=== PATIENT | male | born 1990 | race Caucasian/White ===

== ENCOUNTER 2023-11-14 13:33 | Emergency (ER) | payer OTHER, SELFPAY ==
--- NOTE | ~2023-11-14 | XR_ITS ---
EXAMINATION: XR finger 4th LT min 2V DATE: 11/14/2023 13:54 INDICATION: Laceration to the anterior distal left fourth phalanx post blunt trauma TECHNIQUE: Dorsal palmar, lateral and 2 oblique views of the left fourth digit were obtained COMPARISON: 12/25/2017 FINDINGS: Bone alignment is normal. No fracture. Soft tissue swelling at the palmar aspect of the left fourth d istal phalanx. No radiopaque foreign bodies. IMPRESSION: 1. No osseous abnormality. Reviewed, dictated and finalized at location A. IMPRESSION: 1. No osseous abnormality.
[2023-11-14 13:39] VITALS: BP 160/101; PULSE 85; RESP 16; TEMP 36.7; O2SAT 100
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
[2023-11-14] MEDS: TETANUS,DIPHTHERIA,AC PERTUSSIS ADULT (0.5 ML) BOOSTRIX IM (15:35)
[2023-11-14 15:40] VITALS: BP 149/99; PULSE 80; RESP 16; O2SAT 99
== END 2023-11-14 15:42 | disposition home or self-care (01) ==
PROVIDERS: Emergency Provider Nurse Practitioner Family
DX: S61.215A Laceration without foreign body of left ring finger without damage to nail, initial encounter (principal); Z23 Encounter for immunization; W23.0XXA Caught, crushed, jammed, or pinched between moving objects, initial encounter
CPT/HCPCS: 12002; 73140; 90471; 90715; 99283

== ENCOUNTER 2024-08-10 08:26 | Outpatient (CLI) | payer OTHER, SELFPAY ==
--- NOTE | ~2024-08-10 | MR_ITS ---
EXAMINATION: MR wrist LT wo con DATE: 08/10/2024 09:09 INDICATION: Left wrist pain TECHNIQUE: Magnetic resonance imaging (MRI) of the left wrist was performed without intravenous contr ast. Sequences performed include axial PD-weighted FSE and PD-weighted FS FSE, coronal PD-weighted FS FSE and T1-weighted SE, and sagittal PD-weighted FS FSE and PD-weighted FSE. COMPARISON: None FINDINGS: Intrinsic ligaments: The scapholunate and lunotriquetral ligaments are normal. Triangular fibrocartilage complex (TFCC): The triangular fibrocartilage including its foveal and styloid attachments as well as the dorsal and volar radioulnar ligaments are normal. The ulnar collateral ligament, ulnotriquetral ligament and men iscal homologue are normal. The extensor carpi ulnaris tendon sheath is normal. Extensor wrist: Extensor tendons of the wrist are normal. No tenosynovitis. Flexor wrist: The flexor tendons of the wrist are normal. No abnormality in the carpal tunnel with normal median n erve. Guyon's canal: Guyon's canal including the ulnar nerve and artery are normal. Bones/other: Normal marrow signal. No fracture, erosions, avascular necrosis or abnormal marrow replacing process. Mild osteoarthritis at the first carpal metacarpal joint. Remaining joint spaces appear normal. IMPRESSION: 1. Mild osteoarthritis at the first carpometacarpal joint. Otherwise unremarkable left wrist MRI. Reviewed, dictated and finalized at location A. IMPRESSION: 1. Mild osteoarthritis at the first carpometacarpal joint. Otherwise unremarkab le left wrist MRI.
== END 2024-08-10 08:27 | disposition home or self-care (01) ==
PROVIDERS: PCP Family Medicine; Visit Provider Family Medicine
DX: M19.032 Primary osteoarthritis, left wrist (principal)
CPT/HCPCS: 73221

== ENCOUNTER 2024-10-21 19:32 | Emergency (ER) | payer OTHER, SELFPAY ==
--- NOTE | ~2024-10-21 | CT_ITS ---
History: Vertigo with nausea and vomiting PROCEDURE: CT head without contrast. COMPARISON: None TECHNIQUE: Axial imaging of the head performed from the skull base to the vertex without IV contrast. Sagittal a nd coronal reformations obtained. DLP: 605 mGy-cm FINDINGS: The ventricles are normal in size, shape and position. There is no mass, mass effect or midline shift. There is no abnormal extra-axial fluid collection or intracranial hemorrhage. Visualized paranasal sinuses are clear. The mastoid air cells are well aerated. No acute displaced fractures within the overlying cranium. Impression: No acute intracranial hemorrhage or suspicious mass effect. Reviewed, dictated and finalized at location A. Impression: No acute intracranial hemorrhage or suspicious mass effect.
--- NOTE | ~2024-10-21 | XR_ITS ---
CHEST RADIOGRAPH, PA AND LATERAL CLINICAL HISTORY: cp . COMPARISON: None available TECHNIQUE: PA and lateral views of the chest. FINDINGS The cardiomediastinal silhouette is unremarkable. The lungs are clear. IMPRESSION: No focal infiltrate or effusion. Reviewed, dictated and finalized at location A.
[2024-10-21 19:34] VITALS: BP 150/108; PULSE 95; RESP 16; TEMP 36.3; O2SAT 98
--- OUTSIDE RECORDS SUMMARY | 2024-10-21 19:34 | XMS_ITS | Encounter Summary ---
Author Organization [facility] Healthcare Address [address] [place] [address] Care Team Providers Care Soil Conservation Aide Name Role Phone Unknown, Notinfile Primary Care Provider Unavail able Reason for Visit * Reason Onset Date Comments Wrist Injury 10/21/2024 Encounter Details Date Type Department Care Team (Late st Contact Info) Description 10/21/[address] [facility] Medical Group Orthopedics and Sports Medicine [address] [facility] [address] [place] [address] Roosevelt Quarles, DO [address] [facility] [address] [place] [address] Wrist Injury Social History Tobacco Use Types Packs/Day Years Used Date Smoking Tobacco: Never Smokeless Tobacco: Current AUDIT-C Answer Date Recorded Q1: How often do you have a drink containing alc ohol? 2-4 times a month 09/25/2024 Q2: How many drinks containi ng alcohol do you have on a typical day when you are drinking? 3 or 4 09/25/2024 Q3: How often do you have si x or more drinks on one occasion? 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 * Telephone Encounter - Jen Paul - 10/21/2024 8:06 AM CDT Patient called in wanting to know his MRI results and next steps. Requests c/b. documented in this encounter Plan of Treatment Not on file documented as of this encounter Visit Diagnoses Not on filedocumented in this encounter Care Teams Soil Conservation Aide Relationship Specialty Start Date End Date Unknown, Notinfile PCP - General 09/15/24 documented as of this encounter
--- OUTSIDE RECORDS SUMMARY | 2024-10-21 19:34 | XMS_ITS | Referral Summary ---
Author Organization [address] Address [address] [place] [phone] Care Team Providers Care Principal Embedded Software Engineer Name Role Phone Unknown, Notinfile Primary Care Provider Unavail able Encounters Date Type Department Care Team Description 10/21/2024 Telephone [facility] Orthopedics and Sports Medicine [address] [facility] [address], [place] [address] Roosevelt Quarles DO Wrist Injury 09/25/2024 2:15 PM CDT Ancillary Procedure [facility] Imaging at [address] [phone] Left wrist pain 09/25/2024 2:30 PM CDT Office Visit [facility] Sports Medicine and Primary Care at [address] [place] [address] Roosevelt Quarles DO Flexor carpi ulnaris tendinitis (Primary Dx); Left wrist pain 08/10/2024 Ancillary Procedure [facility] Outside Films from Last 3 Months Allergies No known active allergies Medications No known medications Active Problems No known active problems Social History Tobacco Use Types Packs/Day Years Used Date Smoking Tobacco: Never Smokeless Tobacco: Current Tobacco Cessation:Ready to Q uit: No; Counseling Given: Yes AUDIT-C Answer Date Recorded Q1: How often [...] on file 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 Gender Identity Not on file Sexual Orientation Not on file Last Filed Vital Signs Vital Sign Reading Time Taken Comments Blood Pressure 135/79 09/25/2024 2:27 PM CDT Pulse 72 09/25/2024 2:27 PM CDT Temperature - - Respiratory Rate 18 09/25/2024 2:27 PM CDT Oxygen Saturation - - Inhaled Oxygen Concentration - - Weight 79.8 kg (176 lb) 09/25/2024 2:27 PM CDT Height 172.7 cm (5' 8) 09/25/2024 2:27 PM CDT Body Mass Index 26.76 09/25/2024 2:27 PM CDT Plan of Treatment Not on file Procedures Procedure Name Priority Date/Time Associated Diagnosis Comments XR WRIST LEFT 3 OR MORE VIEWS Schedule Routine, Read Routine (OP Routine) 09/25/2024 2:21 PM CDT Left wrist pain MRI TRANSFER OF OUTSIDE FILMS Routine 08/10/2024 12:00 AM CDT from Last 3 Months Results * XR Wrist Left 3 or More Views (09/25/2024 2:21 PM CDT) Anatomical Region Laterality Modality Upper Extremities, Wrist Left Digital Radiography 09/25/2024 4:28 PM CDT Narrative 09/25/2024 4:32 PM CDT EXAM DESCRIPTION: XR WRIST LEFT 3 OR MORE VIEWS REASON FOR STUDY: pain Pt complains of left wrist pain after grabbing something and feeling a pop from a month ago. No prior surgery to the wrist. TECHNIQUE: There are 3 radiographic view(s) of the left wrist . COMPARISON: No prior FINDINGS: Normal mineralization. No acute fracture or dislocation. Moderate osteoarthritis 1st carpometacarpal joint. Otherwise, joint spaces are intact. Soft tissues are unremarkable. IMPRESSION: No acute fracture. Moderate osteoarthritis 1st carpometacarpal joint. THIS IS AN ELECTRONICALLY VERIFIED FINAL REPORT 09/25/2024 4:32 PM - Electronically signed by Roosevelt FRAZIER T: Report ID: [id number] Reading Location: [id number] Procedure Note Roosevelt Ca MD - 09/25/2024 EXAM DESCRIPTION: XR WRIST LEFT 3 OR MORE VIEWS REASON FOR STUDY: pain Pt complains of left wrist pain after grabbing something and feeling a pop from a month ago. No prior surgery to the wrist. TECHNIQUE: There are 3 radiographic view(s) of the left wrist . COMPARISON: No prior FINDINGS: Normal mineralization. No acute fracture or dislocation.Moderate osteoarthritis 1st carpometacarpal joint. Otherwise, joint spaces areintact. Soft tissues are unremarkable. IMPRESSION: No acute fracture. Moderate osteoarthritis 1st carpometacarpal joint. THIS IS AN ELECTRONICALLY VERIFIED FINAL REPORT 09/25/2024 4:32 PM - Electronically signed by Roosevelt Ca M.D. MJ T: Report ID: [id number] Reading Location: [id number] us Roosevelt Quarles DO IMG XR PROCEDURES Roselia l Result * MRI Outside Reference (08/10/2024 12:00 AM CDT) Narrative [facility] - 10/07/2024 1:56 PM CDT This order has been auto-finalized and does not contain a result. us Not In File Miscellaneous IMG MRI PROCEDURES Fin al Result [facility] from Last 3 Months Insurance [facility] Care Teams Principal Embedded Software Engineer Relationship Specialty Start Date End Date Unknown, Notinfile PCP - General 09/15/24
--- OUTSIDE RECORDS SUMMARY | 2024-10-21 19:34 | XMS_ITS | Clinical Summary ---
Author Organization [facility] Address [address] [place] [id number] Care Team Providers Care Dispute Resolution Specialist Name Role Phone Yumiko Preston MD Primary Care Provider [phone]- [phone] Allergies No known active allergies Medications Multiple Vitamins-Minerals (MENS MULTIVITAMIN OR) Act claudio colchicine 0.6 MG tabletIndications :Acute idiopathic gout of right foot Take 1 tablet (0.6 mg total) by mouth daily. 5 tablet 3 09/29/2021 Active Active Problems Problem Noted Date Diagnosed Date Overweight (BMI 25.0-29.9) 10/16/2021 Acute idiopathic gout of right foot 09/29/2021 Family History Medical History Relation Comments Cancer Father Cancer Paternal Grandfather Relation Status Comments Father Alive Mother Alive Paternal Grandfather Social History Tobacco Use Types Packs/Day Years Used Date Smoking Tobacco: Every Day Cigarettes 0.5 10 Smokeless Tobacco: Never Tobacco Cessation:Ready to Q uit: No; Counseling Given: Yes Alcohol Use Standard Drinks/Week Comments Yes 0 (1 standard drink = 0.6 oz pur e alcohol) socially PHQ-2 Answer Date Recorded PHQ-2 Score - If the patient scores above 3, please move on to questions 3-9 0 09/29/2021 Sex and Gender Information Value Date Recorded Sex Assigned at Male 07/06/2024 11:01 AM TABULAR TYPIST Legal Sex Male 4:47 PM CDT Gender Identity Not on file Sexual Orientation Not on file Last Filed Vital Signs Vital Sign Reading Time Taken Comments Blood Pressure 116/72 10/13/2021 3:02 PM CDT Pulse 86 10/13/2021 3:02 PM CDT Temperature 36.5 C (97.7 F) 10/13/2021 3:02 PM CDT Respiratory Rate 20 10/13/2021 3:02 PM CDT Oxygen Saturation 96% 10/13/2021 3:02 PM CDT Inhaled Oxygen Concentration - - Weight 78.8 kg (173 lb 12.8 oz) 10/13/2021 3:02 PM CDT Height 172.7 cm (5' 8) 10/13/2021 3:02 PM CDT Body Mass Index 26.43 10/13/2021 3:02 PM CDT Plan of Treatment Health Maintenance Due Date Last Done Comments Hepatitis C 2009 DTaP, Tdap and Td Vaccines ( 1 - Tdap) 2010 Hepatitis B Vaccines (1 of 3 - 19+ 3-dose series) 2010 Pneumococcal Vaccine: Pediat rics (0 to 5 Years) and At-Risk Patients (6 to 49 Years) (1 of 2 - PCV) 2010 Annual Physical 02/17/2020 02/16/2019 COVID-19 Vaccine (2 - 2023-2 5 season) 2024 03/09/2021 HPV Vaccines Aged Out No longer eligi ble based on patient's age to complete this topic Meningococcal B Vaccine Aged Out No l onger eligible based on patient's age to complete this topic Meningococcal Vaccine Aged Out No gavino mika eligible based on patient's age to complete this topic RSV Immunizations Under 20 Months Aged Out No longer eligible based on patient's age to complete this topic Insurance [employer] Care Teams Dispute Resolution Specialist Relationship Specialty Start Date End Date Yumiko Preston MD [address] [place] [phone] PCP - General FAMILY PRACTICE 07/06/24
--- OUTSIDE RECORDS SUMMARY | 2024-10-21 19:34 | XMS_ITS | Clinical Summary ---
Author Organization [address] Address [address] [place] [phone] Care Team Providers Care Plastics Engineer Name Role Phone Unknown, Notinfile Primary Care Provider Unavail able Allergies No known active allergies Medications No known medications Active Problems No known active problems Encounters Date Type Department Care Team Description 10/21/2024 Telephone [facility] Orthopedics and Sports Medicine [address] [place] [address] [place] [phone] Roosevelt Quarles DO Wrist Injury 09/25/2024 2:30 PM CDT Office Visit [facility] Sports Medicine and Primary Care at [address] [place] [address] Roosevelt Quarles DO Flexor carpi ulnaris tendinitis (Primary Dx); Left wrist pain 09/25/2024 2:15 PM CDT Ancillary Procedure [facility] Group Imaging at [address] [phone] Left wrist pain 08/10/2024 Ancillary Procedure [facility] Outside Films from Last 3 Months Family History Medical History Relation Name Comments No Known Problems Father No Known Problems Mother Relation Name Status Comments Father Alive Mother Alive Social History Tobacco Use Types Packs/Day Years [...] on file 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 Gender Identity Not on file Sexual Orientation Not on file Obstetrics History Last Filed Vital Signs Vital Sign Reading [...] 09/25/2024 2:27 PM CDT Plan of Treatment Health Maintenance Due Date Last Done Comments Depression Screening 1991 Hepatitis C Screening 1991 Varicella Vaccines (1 of 2 - 13+ 2-dose series) 02/26/2004 Hepatitis B Screening 2009 Regular Well Visit/Exam 18-64 2009 Covid-19 Vaccine (2 - 2023-2 5 season) 2024 03/09/2021 Influenza Vaccine (Season Ended) 2025 DTaP/Tdap/Td Vaccine (2 - Td or Tdap) 11/13/2033 11/14/2023 HPV Vaccines Aged Out No longer eligi ble based on patient's age to complete this topic Pneumococcal vaccine <65 Aged Out No longer eligible based on patient's age to complete this topic Procedures Procedure Name Priority Date/Time Associated Diagnosis [...] signed by Roosevelt FRAZIER T: Report ID: [id number] Reading Location: [id number] Procedure Note Roosevelt Ca MD - 09/25/2024 [...] signed by Roosevelt FRAZIER T: Report ID: [id number] Reading Location: [id number] us Roosevelt Quarles DO IMG XR PROCEDURES Roselia l Result * MRI Outside Reference (08/10/2024 12:00 AM CDT) Narrative [facility] - 10/07/2024 1:56 PM CDT This order has been auto-finalized and does not contain a result. us Not In File Miscellaneous IMG MRI PROCEDURES Fin al Result [facility] from Last 3 Months Insurance [facility] C[facility] Care Teams Plastics Engineer Relationship Specialty Start Date End Date Unknown, Notinfile PCP - General 09/15/24
--- NOTE | 2024-10-21 19:43 | ECG_ITS ---
Test Date: 2024-10-21 19:49:12 Measurements Intervals Adams Rate: 95 P: 45 AK: 141 QRS: 37 QRSD: 106 T: -9 QT: 336 QTc: 423 Interpretive Statements SINUS RHYTHM BORDERLINE ST-T WAVE ABNORMALITY- ANT/INF LEADS BORDERLINE ECG No previous ECG available for comparison Electronically Signed On 10-21-2024 21:04:17 CDT by Kota Hooker D.O.
[2024-10-21 19:59] VITALS: O2SAT 100
[2024-10-21 20:00] VITALS: BP 140/102; PULSE 95; RESP 17; O2SAT 97
[2024-10-21 20:01] VITALS: PULSE 98
[2024-10-21 20:17] LABS: Basophils Percent Auto 0.3 % (0.2-1.2); Eosinophils Percent Auto 0.2 % (0-4.4); Hematocrit 47.9 % (42.0-52.0); Hemoglobin 16.4 g/dL (14.0-18.0); Immature Granulocyte Absolute 0.13 K/mm3 (0.00-0.031); Immature Granulocyte Percent A 1.1 % (0-0.5); Lymphocytes Absolute Auto 2.71 K/mm3 (0.9-3.2); Lymphocytes Percent Auto 23.7 % (18.3-44.2); Mean Corpuscular HGB Conc 34.2 g/dl (32-36); Mean Corpuscular Volume 84.8 fl (80-100); Mean Platelet Volume 9.2 fl (7.4-10.4); Monocytes Absolute Auto 0.8 K/mm3 (0.1-0.6); Monocytes Percent Auto 7.2 % (2.6-8.5); Neutrophils Absolute Auto 7.7 K/mm3 (1.3-6.7); Neutrophils Percent Auto 67.5 % (45.5-73.1); Platelet Count Result 298 k/mm3 (150-375); Red Blood Count 5.65 M/mm3 (4.6-6.20); Red Cell Distribution Width 12.3 % (11.5-14.5); White Blood Count 11.4 K/mm3 (4.5-10.0)
[2024-10-21 20:28] LABS: Alanine Aminotransferase 23 U/L (6-50); Albumin Level 5.5 g/dL (3.5-5.1); Alkaline Phosphatase 69 U/L (38-126); Anion Gap 16 mmol/L (4-12); Aspartate Amino Transferase 33 U/L (17-59); Blood Urea Nitrogen 20 mg/dL (9-20); Calcium 10.1 mg/dL (8.4-10.2); Carbon Dioxide 21 mmol/L (22-30); Chloride 97 mmol/L (98-107); Estimated CRCL calculation 87 ml/min; Estimated Glomerular Filt Rate > 60; Glucose 90 mg/dL (65-110); Lipase 25 U/L (23-300); Potassium 3.5 mmol/L (3.4-5.0); Prothrombin Time 13.6 Seconds (11.1-14.7); Sodium 134 mmol/L (137-145); Total Protein 9.5 g/dL (6.3-8.2)
[2024-10-21 20:29] LABS: Partial Thromboplastin Time 28.7 Seconds (22.3-36.8)
[2024-10-21 20:39] LABS: Troponin I < 0.012 ng/mL (0.000-0.034)
--- OUTSIDE RECORDS SUMMARY | 2024-10-21 20:47 | XMS_ITS | Clinical Summary ---
Author Organization [address] Address [address] [place] [phone] Care Team Providers Care Commercial Correspondent Name Role Phone Unknown, Notinfile Primary Care Provider Unavail able Allergies No known active allergies Medications No known medications Active Problems No known active problems Encounters Date Type Department Care Team Description 10/21/2024 Telephone [facility] Orthopedics and Sports Medicine [address] [place] [address] [place] [phone] Roosevelt Quarles DO Wrist Injury 09/25/2024 2:30 PM CDT Office Visit [facility] Sports Medicine and Primary Care at [address] [place] [address] Roosevelt Quarles DO Flexor carpi ulnaris tendinitis (Primary Dx); Left wrist pain 09/25/2024 2:15 PM CDT Ancillary Procedure 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 us Not In File Miscellaneous IMG MRI PROCEDURES Fin al Result [facility] from Last 3 Months Insurance [facility] C[facility] Care Teams Commercial Correspondent Relationship Specialty Start Date End Date Unknown, Notinfile PCP - General 09/15/24
--- OUTSIDE RECORDS SUMMARY | 2024-10-21 20:47 | XMS_ITS | Encounter Summary ---
Author Organization [facility] Healthcare Address [address] [place] [address] Care Team Providers Care Artificial Fly Tier Name Role Phone Unknown, Notinfile Primary Care Provider Unavail able Reason for Visit * Reason Onset Date Comments Wrist Injury 10/21/2024 Encounter Details Date Type Department Care Team (Late st Contact Info) Description 10/21/2024 Telephone [facility] Medical Group Orthopedics and Sports Medicine [address] [facility] [address] [place] [address] Roosevelt Quarles, DO [address] [facility] [address] [place] [address] Wrist Injury Social History Tobacco [...] on file 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 * Telephone Encounter - Jen Paul - 10/21/2024 8:06 AM CDT Patient called in wanting to know his MRI results and next steps. Requests c/b. documented in this encounter Plan of Treatment Not on file documented as of this encounter Visit Diagnoses Not on filedocumented in this encounter Care Teams Artificial Fly Tier Relationship Specialty Start Date End Date Unknown, Notinfile PCP - General 09/15/24 documented as of this encounter
--- OUTSIDE RECORDS SUMMARY | 2024-10-21 20:47 | XMS_ITS | Referral Summary ---
Author Organization [address] Address [address] [place] [phone] Care Team Providers Care Side Stitcher Name Role Phone Unknown, Notinfile Primary Care Provider Unavail able Encounters Date Type Department Care Team Description 10/21/2024 Telephone [facility] Orthopedics and Sports Medicine [address] [facility] [address], [place] [address] Roosevelt Quarles DO Wrist Injury 09/25/2024 2:15 PM CDT Ancillary Procedure [facility] Imaging at [address] [phone] Left wrist pain 09/25/2024 2:30 PM CDT Office Visit [facility] Sports Medicine and Primary Care at [address] [place] [address] Roosevelt Quarles DO Flexor carpi [...] on file 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 MJ T: Report ID: [id number] Reading Location: [id number] us Roosevelt Quarles DO IMG XR PROCEDURES Roselia l Result * MRI Outside Reference (08/10/2024 12:00 AM CDT) Narrative [facility] - 10/07/2024 1:56 PM CDT This order has been auto-finalized and does not contain a result. us Not In File Miscellaneous IMG MRI PROCEDURES Fin al Result [facility] from Last 3 Months Insurance [facility] Care Teams Side Stitcher Relationship Specialty Start Date End Date Unknown, Notinfile PCP - General 09/15/24
[2024-10-21] MEDS: MECLIZINE HCL 25 MG TABLET PO (21:40)
--- NOTE | 2024-10-21 21:52 | ED_ITS ---
HPI - Recheck/Abnormal Lab/Rx General Chief Complaint: Recheck/Abnormal Lab/Rx Stated Complaint: blood pressure high Time Seen by Provider: 10/21/24 20:25 History of Present Illness HPI narrative: 34-year-old otherwise healthy male presenting to the emergency department for elevated blood pressure readings and vertiginous sensations for last few days. He states he vomited 1 time but did not fall or injure his head. Endorses profound vertigo especially with position changes and certain angles. No history of vertigo in the past. No nauseousness, vomiting. He endorses some minor chest pain that went away without any intervention. No vision changes, shortness a breath, fever, chills, sick contacts. Related Data Allergies Allergy/AdvReac Type Severity Reaction Status Date / Time No Known Allergies Allergy Verified 11/14/23 13:42 Review of Systems 2 Review of Systems: As reviewed above in HPI Exam 2 Narrative: GENERAL: [Well-appearing, well-nourished, and in no acute distress.] HEAD: [Normocephalic, atraumatic.] EYES: [PERRLA and EOMI.] ENT: Nares clear, no rhinorrhea or epistaxis. Mucous membranes moist. NECK: Supple. CHEST: [Clear to auscultation. No respiratory distress.] HEART: [Regular rate and rhythm]. No murmur heard. [Normal peripheral pulses.] ABDOMEN: [Soft, nondistended], [nontender], [No rigidity or guarding] EXTREMITIES: Normal range of motion. [No edema.] SKIN: Warm, dry, no rash. NEURO: [No focal deficits]. Alert and oriented [x3.] No ataxia in the arms or legs, ambulates in a straight line. PSYCH: [Normal mood and affect.] Course Vital Signs Vital signs: Vital Signs Temperature 36.3 C L 10/21/24 19:34 Pulse Rate 95 10/21/24 19:34 Respiratory Rate 16 10/21/24 19:34 Blood Pressure 150/108 H 10/21/24 19:34 Pulse Oximetry 98 10/21/24 19:34 Oxygen Delivery Room Air 10/21/24 19:34 Temperature 36.9 C 10/21/24 22:29 Pulse Rate 88 10/21/24 22:29 Respiratory Rate 18 10/21/24 22:29 Blood Pressure 160/100 H 10/21/24 22:29 Pulse Oximetry 96 10/21/24 22:29 Oxygen Delivery Room Air 10/21/24 19:34 MDM - Recheck/Abnormal Lab/Rx MDM Narrative Medical decision making narrative: 34-year-old otherwise healthy male presenting to the emergency depart for elevated blood pressure readings and vertiginous symptoms. Patient states he has a primary care provider appointment coming up to discuss his blood pressure. He has a benign neurological examination, strong symmetric pulses, mildly hypertensive but no other vital concerns. Symptoms consistent with benign positional paroxysmal vertigo but will obtain basic laboratory studies, CT of the head, EKG and chest x-ray as well as cardiac workup to evaluate for any other potential causes such as electrolyte imbalances, dehydration, infection, pneumonia. Low suspicion cardiac in nature. He was given meclizine and fluids and re-evaluated. Patient declined fluids but felt better after meclizine. CT scan was unremarkable, troponin negative, EKG unremarkable. Normal workup otherwise. Patient given prescription for meclizine and follow up with his primary care provider. He was given return precautions and discharge instructions. Medical Records Attestation: I reviewed the patient's medical records. Lab Data Attestation: I reviewed the patient's lab results. 10/21/24 20:11 10/21/24 20:11 Labs: Lab Results 10/21/24 Range/Units 20:11 WBC 11.4 H (4.5-10.0) K/mm3 RBC 5.65 (4.6-6.20) M/mm3 Hgb 16.4 (14.0-18.0) g/dL Hct 47.9 (42.0-52.0) % MCV 84.8 (80-100) fl MCH 29.0 (26-34) pg MCHC 34.2 (32-36) g/dl RDW 12.3 (11.5-14.5) % Plt Count 298 (150-375) k/mm3 MPV 9.2 (7.4-10.4) fl Immature Gran % (Auto) 1.1 H (0-0.5) % Neut % (Auto) 67.5 (45.5-73.1) % Lymph % (Auto) 23.7 (18.3-44.2) % Miller % (Auto) 7.2 (2.6-8.5) % Eos % (Auto) 0.2 (0-4.4) % Baso % (Auto) 0.3 (0.2-1.2) % Lymph # (Auto) 2.71 (0.9-3.2) K/mm3 Miller # (Auto) 0.8 H (0.1-0.6) K/mm3 Eos # (Auto) 0.0 (0-0.3) K/mm3 Baso # (Auto) 0.0 (0.0-0.1) K/mm3 Abs Immat Gran (auto) 0.13 H (0.00-0.031) K/mm3 Absolute Neuts (auto) 7.7 H (1.3-6.7) K/mm3 Absolute Nucleated RBC 0.000 (0.0-0.012) K/mm3 Nucleated RBC % 0.0 (0.0-0.2) % PT 13.6 (11.1-14.7) Seconds INR 1.0 APTT 28.7 (22.3-36.8) Seconds Sodium 134 L (137-145) mmol/L Potassium 3.5 (3.4-5.0) mmol/L Chloride 97 L (98-107) mmol/L Carbon Dioxide 21 L (22-30) mmol/L Anion Gap 16 H (4-12) mmol/L BUN 20 (9-20) mg/dL Creatinine 1.03 (0.7-1.3) mg/dL Estim Creat Clear Calc 87 ml/min Estimated GFR > 60 (59 - ) Glucose 90 (65-110) mg/dL Calcium 10.1 (8.4-10.2) mg/dL Total Bilirubin 1.0 (0.2-1.3) mg/dL AST 33 (17-59) U/L ALT 23 (6-50) U/L Alkaline Phosphatase 69 (38-126) U/L Troponin I < 0.012 (0.000-0.034) ng/mL Total Protein 9.5 H (6.3-8.2) g/dL Albumin 5.5 H (3.5-5.1) g/dL Lipase 25 (23-300) U/L Imaging Data Attestation: I personally reviewed and interpreted this imaging study as follows: My impression: Impressions Chest X-Ray 10/21/24 20:28 IMPRESSION: No focal infiltrate or effusion. Head CT 10/21/24 20:58 Impression: No acute intracranial hemorrhage or suspicious mass effect. Discharge Plan Discharge Clinical Impression: Benign paroxysmal positional vertigo, Hypertension Patient Disposition: Home Condition: Stable Instructions: Antibiotic Form, Benign Paroxysmal Positional Vertigo (DC), Hypertension (ED), Dizziness (ED) Additional Instructions: Your CT scan and laboratory studies are reassuring here. Your symptoms are consistent with benign positional vertigo which is a peripheral vertigo that can be treated with a number of medications but will need evaluation with your primary doctor and potentially nuclear cardiology technologist on outpatient basis. Your blood pressure could be related but is not causing any issue with you organs and not showing any signs of emergency. Regular doctor follow-up for blood pressure management on Saturday. We will send you home with meclizine which can help with dizziness and take this as needed. Return with any emergent concerns. Patient Language: Malaysian Prescriptions: New meclizine 25 mg tablet 25 mg PO TID PRN (Reason: dizziness) 10 Days Qty: 30 0RF Follow-up/Referrals: UNKNOWN,DOCTOR [Primary Care Provider] - Time of Disposition: 21:57
[2024-10-21 22:29] VITALS: BP 160/100; PULSE 88; RESP 18; TEMP 36.9; O2SAT 96
== END 2024-10-21 22:00 | disposition home or self-care (01) ==
PROVIDERS: Emergency Medicine; Emergency Provider Student in an Organized Health Care Education/Training Program
DX: I10 Essential (primary) hypertension (principal); H81.10 Benign paroxysmal vertigo, unspecified ear; R94.31 Abnormal electrocardiogram [ECG] [EKG]
CPT/HCPCS: 36415; 70450; 71046; 80053; 83690; 84484; 85025; 85610; 85730; 93005; 96360; 99284; A9270

== ENCOUNTER 2024-11-02 15:40 | Outpatient (RCR) | payer OTHER, SELFPAY ==
--- NOTE | 2024-11-04 14:00 | BUOTOPEVAL ---
Assessment and note entered by Haydee Negrete OT Evaluation Information Assessment Status Evaluation Diagnosis Flexor carpi ulnaris tendinitis ICD-10 Condition Codes (OT) Pain in left wrist M25.532 Onset 07/03/2024 Reported Pain Level Pain Score 0: Self Report Assessment OT Clinical Summary The patient is a 34 year old male who was referred to outpatient OT due to flexor carpi ulnaris tendonitis resulting in L wrist pain. 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 He scored 40.9% on QuickDASH questionnaire at evaluation demonstrating moderately impaired functioning of L UE. The patient requires skilled OT to address deficits and return to PLOF. Plan of Care Interventions Therapeutic Exercise,Manual Therapy,Neuro Re- education,Therapeutic Activities,Electrical Stimulation,Sensory Integrative Techniques,Self- Care/Home Management,Prosthetic Training, Ultrasound OT Services Indicated Yes Treatment Frequency and 1-2x/week for 8 visits. Duration These treatments will address the objective and functional deficits as defined above. The patient will be advanced safely and appropriately in order for the patient to progress towards his/her prior level of function. Additional exercises will be introduced and as well as a comprehensive home exercise program upon discharge, if needed, ?to ensure carryover of functional gains achieved in the clinic. This treatment plan has been reviewed and agreement upon by the patient.
--- NOTE | 2024-11-04 14:00 | OPREHPOC ---
Outpatient Therapy Plan of Care This is a Multidisciplinary Plan of Care that may contain components documented by all disciplines (PT, OT, and ST.) OT Problem 1 OT Problem #1 Knowledge Deficit OT Goal 1 Goal / Goal Update The patient will demonstrate 100% knowledge of UE HEP needed to achieve full ROM and strength of affected UE. Target Visit 8 OT Problem 2 OT Problem #2 Pain OT Goal 1 Goal / Goal Update The patient will demonstrate 0/10 pain during ADLs in order to avoid disuse of UE causing weakness and inability to perform work tasks. Target Visit 8 OT Goal 2 Goal / Goal Update The patient will demonstrate WNL wrist ROM demonstrating wrist flexion at >>60 degrees, wrist extension at >60 degrees in order to ensure proper mobility for grooming tasks. 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 Target Visit 8
--- NOTE | 2024-12-04 08:29 | BUOTOPDC ---
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 The patient demonstrates no pain during ADLs without use of splint, WNL crop roller/pinch strength, 5 /5 wrist strength and has improved QuickDASH score from 40.9% to 6.8% demonstrating significant improvement in overall function of L UE. The patient demonstrates good understanding of UE HEP and the need for continued use of splint while at work or doing activities that require force through UE until his follow up with MD. The patient is discharged at this time due to meeting all goals and no longer requiring skilled OT, patient discharged with UE HEP. Plan of Care Interventions Therapeutic Exercise,Manual Therapy,Neuro Re- education,Therapeutic Activities,Electrical Stimulation,Sensory Integrative Techniques,Self- Care/Home Management,Prosthetic Training, Ultrasound OT Services Indicated No
--- NOTE | 2024-12-04 08:30 | OPREHPOC ---
Outpatient Therapy Plan of Care This is a Multidisciplinary Plan of Care that may contain components documented by all disciplines (PT, OT, and ST.) OT Problem 1 OT Problem #1 Knowledge Deficit OT Goal 1 Goal / Goal Update The patient will demonstrate 100% knowledge of UE HEP needed to achieve full ROM and strength of affected UE. Target Visit 8 OT Problem 2 OT Problem #2 Pain OT Goal 1 Goal / Goal Update The patient will demonstrate 0/10 pain during ADLs in order to avoid disuse of UE causing weakness and inability to perform work tasks. GOAL MET; 0/10; DISCONTINUE 12/02/2024 Target Visit 8 Progress Met OT Goal 2 Goal / Goal Update The patient will demonstrate WNL wrist ROM demonstrating wrist flexion at >>60 degrees, wrist extension at >60 degrees in order to ensure proper mobility for grooming tasks. 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
== END 2024-12-02 20:00 | disposition home or self-care (01) ==
LOC: CHSOT 15:40
PROVIDERS: Visit Provider Family Medicine Sports Medicine
DX: M65.831 Other synovitis and tenosynovitis, right forearm (principal)
CPT/HCPCS: 97110; 97165; 97530

== ENCOUNTER 2024-12-18 15:21 | Outpatient (CLI) | payer OTHER, SELFPAY ==
--- NOTE | ~2024-12-18 | CT_ITS ---
Clinical Indication: Night sweats CT Scan of the Chest, Abdomen, and Pelvis with Contrast: Technique: Contiguous sections were acquired throughout the chest, abdomen, and pelvis after intraven ous administration of 100 cc of Omnipaque 350. Dose reduction technique was used on this scan by moshe barlow automated exposure control and iterative reconstruction technique. The dose-length product (DL P) was 549.51 mGy-cm. Findings: There is no evidence of any significant mediastinal, hilar or axillary lymphadenopathy. The mediastin al soft tissues and vascular structures appear normal. There is no evidence of pleural or pericardial effusion. The lungs are clear. No pulmonary nodules or infiltrates are noted. The liver, spleen, pancreas, gallbladder, adrenals and kidneys are within normal limits. No evidence of aortic aneurysm. No lymphadenopathy. No bowel obstruction or bowel wall thickening. There is no evidence to suggest acute appendicitis. Urinary bladder is unremarkable. No pelvic mass seen. No ascites. Impression: No significant abnormalities seen. Reviewed, dictated and finalized at [facility]. Impression: No significant abnormalities seen.
--- OUTSIDE RECORDS SUMMARY | 2024-12-18 15:34 | XMS_ITS | Clinical Summary ---
Author Organization [facility] Address [address] [place] [id number] Care Team Providers Care Member Service Specialist Name Role Phone Josh Alan Primary Care Provider [phone] Allergies No known active allergies Medications Multiple Vitamins-Minerals (MENS MULTIVITAMIN OR) Act claudio colchicine 0.6 MG tabletIndications :Acute idiopathic gout of right foot Take 1 tablet (0.6 mg total) by mouth daily. 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 [address] [facility] [place] [address] Josh Alan, PA [address] [place] [phone] Health Maintenance Due Date Last Done Comments Hepatitis C 2009 DTaP, Tdap and Td Vaccines ( 1 - Tdap) 2010 Hepatitis B Vaccines (1 of 3 - 19+ 3-dose series) 2010 Pneumococcal Vaccine: Pediat rics (0 to 5 Years) and At-Risk Patients (6 to 49 Years) (1 of 2 - PCV) 2010 HPV Vaccines (1 - 3-dose SCD M series) 2018 Annual Physical 02/17/2020 02/16/2019 COVID-19 Vaccine (2 - 2023-2 5 season) 2024 03/09/2021 Meningococcal B Vaccine Aged Out No l onger eligible based on patient's age to complete this topic Meningococcal Vaccine Aged Out No gavino mika eligible based on patient's age to complete this topic RSV Immunizations Under 20 Months Aged Out No longer eligible based on patient's age to complete this topic Insurance [employer] Care Teams Member Service Specialist Relationship Specialty Start Date End Date Josh Alan PA [address] [place] [phone] PCP - General 11/30/24
--- OUTSIDE RECORDS SUMMARY | 2024-12-18 15:34 | XMS_ITS | Clinical Summary ---
Author Organization [address] [phone] Care Team Providers Care Comsec Manager Name Role Phone Unknown, Notinfile Primary Care Provider Unavail able Allergies No known active allergies Medications No known medications Active Problems No known active problems Encounters Date Type Department Care Team Description 10/26/2024 Orders Only [facility] Sports Medicine and Primary Care at [address] [place] [phone] Roosevelt Qualres DO Flexor carpi ulnaris tendinitis (Primary Dx); Left wrist pain 10/21/2024 Telephone [facility] Orthopedics and Sports Medicine [address] [place] [phone] Roosevelt Quarles DO Wrist Injury 09/25/2024 2:30 PM CDT Office Visit [facility] Medicine and Primary Care at [address] [place] [phone] Roosevelt Quarles DO Flexor carpi ulnaris tendinitis (Primary Dx); Left wrist pain 09/25/2024 2:15 PM CDT Ancillary Procedure [facility] at [address] [phone] Left wrist pain from Last 3 Months Family History Medical [...] on file 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 Gender Identity Not on file Sexual Orientation [...] Screening 2009 Regular Well Visit/Exam 18-64 2009 HPV Vaccines (1 - 3-dose SCD M series) 2018 Covid-19 Vaccine (2 - 2023-2 5 season) 2024 03/09/2021 Influenza Vaccine (#1) 2025 DTaP/Tdap/Td Vaccine (2 - Td or Tdap) 11/13/2033 11/14/2023 Pneumococcal vaccine <65 Aged Out No longer eligible based on patient's age to complete this topic Procedures Procedure Name Priority Date/Time Associated Diagnosis Comments XR WRIST LEFT 3 OR MORE VIEWS Schedule Routine, Read Routine (OP Routine) 09/25/2024 2:21 PM CDT Left wrist pain from Last 3 Months Results * XR [...] signed by Roosevelt FRAZIER T: Report ID: [id number] Reading Location: [id number] Procedure Note Roosevelt Ca MD - 09/25/2024 [...] signed by Roosevelt FRAZIER T: Report ID: [id number] Reading Location: [id number] Roosevelt Quarles DO IMG XR PROCEDURES Roselia l Result from Last 3 Months Insurance [facility] CMR Member Subscriber Plan / Payer (Ef fective 2024-Present) Name:Sukhi Jones Member ID:[id number] Relation to Subscriber:Self Name:RobertSukhi Subscriber ID:[id number] Payer ID:[id number] (NAIC) Type:AETNA HMO/PPO Address: [facility] [id number] [place] [address] Care Teams Comsec Manager Relationship Specialty Start Date End Date Unknown, Notinfile PCP - General 09/15/24
[2024-12-18 16:14] LABS: Estimated Glomerular Filt Rate 58
== END 2024-12-18 15:22 | disposition home or self-care (01) ==
PROVIDERS: PCP Physician Assistant; Visit Provider Physician Assistant
DX: R61 Generalized hyperhidrosis (principal)
CPT/HCPCS: 71260; 74177; Q9967